=== PATIENT | female | born 1995 | race African-American/Black ===

== ENCOUNTER 2020-11-24 21:30 | Outpatient (CLI) | payer OTHER ==
[2020-11-24 23:26] VITALS: BP 111/63
--- NOTE | 2020-11-25 11:52 | Ultrasound Report ---
ULTRASOUND BIOPHYSICAL PROFILE INDICATION: fwb. COMPARISON: None available. FINDINGS: breathing movement = 2 Gross body movement = 2 tone = 2 Qualitative amniotic fluid volume = 2 Total biophysical score = /8 Presentation is Cephalic. heart rate is 136 beats per minute. IMPRESSION: biophysical profile = 10/29 Signer Name: Hawk Ruiz MD Signed: 11/25/2020 12:16 AM Workstation Name: [id number]
== END 2020-11-25 00:52 | disposition home or self-care (01) ==
LOC: TRG 21:30 → APU 21:31 → TRG 11-25 00:52
PROVIDERS: ATTEND Obstetrics & Gynecology
DX: O36.8130 Decreased fetal movements, third trimester, not applicable or unspecified (principal); Z3A.39 39 weeks gestation of pregnancy
CPT/HCPCS: 59025; 76819